=== PATIENT | female | born 1980 | race Caucasian/White ===

== ENCOUNTER → 2017-03-25 | Outpatient (CLI) | payer OTHER ==
[~2017-03-25] MED LIST: CIPRO250 M2 PO; FLOMAX0.4 MG PO; HYDROCODONE-AP1 EAC6 PO; LEXAPRO5 MG PO
== END ==
LOC: M.MRI 03-17 15:01
DX: M99.09 Segmental and somatic dysfunction of abdomen and other regions (principal); M51.37 Other intervertebral disc degeneration, lumbosacral region; M51.27 Other intervertebral disc displacement, lumbosacral region; Z98.82 Breast implant status

== ENCOUNTER → 2017-04-29 | Outpatient (CLI) | payer OTHER | LOC: M.RAD 12:32 | DX: R05 Cough (principal); R50.9 Fever, unspecified ==

== ENCOUNTER → 2021-01-19 | Outpatient (CLI) | payer OTHER | LOC: M.RAD 09:53 | PROVIDERS: ATTEND Student in an Organized Health Care Education/Training Program | DX: Z12.31 Encounter for screening mammogram for malignant neoplasm of breast (principal) ==